=== PATIENT | female | born 2000 | race Caucasian/White ===

== ENCOUNTER 2022-12-29 16:29 | Outpatient (CLI) | payer OTHER, SELFPAY | END 2022-12-29 16:30 | disposition home or self-care (01) | LOC: NFLDUCREF 16:29 | PROVIDERS: Visit Provider Physician Assistant | DX: L02.91 Cutaneous abscess, unspecified (principal) | CPT/HCPCS: 87070 ==

== ENCOUNTER 2023-04-20 10:20 | Emergency (ER) | payer OTHER, SELFPAY ==
[2023-04-20 10:30] VITALS: BP 141/82; PULSE 96; RESP 16; TEMP 36.8; O2SAT 100; BMI 23.5
--- NOTE | 2023-04-20 10:57 | ED.GENADULT ---
HPI - General Adult General Chief complaint: GI Bleed Stated complaint: blood in stool Time Seen by Provider: 04/20/23 10:22 History of Present Illness HPI narrative: This 23-year-old female comes in reporting bright red blood in her stool over the past 4 5 days. She states that she did have some constipation and then these symptoms followed. She does not report any abdominal pain or fever. She does not have a previous history of GI bleeding from the rectum. She states that she thinks that she does have some issue with her hemorrhoids. She does not have any immediate family history of colon problems but states that her grandmother in her 40s because of colon cancer. Related Data Home Medications Medication Instructions Recorded Confirmed dextroamphetamine-amphetamine 5 mg 1 tab PO DAILY 12/29/22 04/20/23 tablet hydroxyzine HCl 25 mg tablet 25 mg PO 3XD 12/29/22 04/20/23 lisdexamfetamine 40 mg capsule 40 mg PO DAILY 12/29/22 04/20/23 Allergies Allergy/AdvReac Type Severity Reaction Status Date / Time amoxicillin Allergy Verified 04/20/23 10:29 Review of Systems Status of ROS: Reports: 10 or more systems reviewed and unremarkable except as noted in History and below Narrative: Constitutional: No fevers, no weight gain or loss. Eyes: No discharge. No vision changes. HENT: No congestion, no sore throat, no ear pain. Cardiovascular: No chest pain, no palpitations. Respiratory: No shortness of breath, no wheezes, no cough. Gastrointestinal: No abdominal pain, no vomiting, no diarrhea. Red blood mixed in with the stool over the past 4 5 days. Genitourinary: No dysuria, no hematuria. Musculoskeletal: Normal range of motion. Skin: No rashes, no pruritis. Neurological: No dizziness, weakness, sensory change, speech change. Endo/Heme/Allergies: No bruising or bleeding. No polydipsia. Pysch: no suicidality, no anxiety, no insomnia. All other systems reviewed and are negative. PFSH PFSH Social History Smoking Status: Never smoker Do you use any of these nicotine containing products: Smokeless Tobacco Second hand tobacco smoke exposure: No How often do you have a drink containing alcohol: 2-4 times a month AUDIT-C Alcohol total score: 2 Non-prescribed substance use: denies use service: No Exam Narrative: Exam Narrative: Constitutional: Well-developed, well-nourished, no acute distress. HEENT: Normocephalic, atraumatic. Neck: Normal range of motion. Nontender. Supple. Heart: Regular. No murmurs. Normal rate. Intact distal pulses. Lungs: Clear to auscultation. No chest discomfort. No wheezes, rhonchi, or rales. Abdomen: Normal bowel sounds. Nontender. No rebound tenderness. Genitalia: Deferred. Back: No midline tenderness. Normal range of motion. Extremities: Normal range of motion. No injury. Skin: Intact. No rash. Warm. No erythema or pallor. Neurologic: No altered sensation. No weakness. Alert and oriented. Psychiatric: No suicidality. No anxiety or depression. No insomnia. Nursing notes and vitals signs are reviewed. Const: Vital Signs, click to edit/add: Vital Signs - 24 hr 04/20/23 10:30 04/20/23 11:30 Temperature 98.3 F Pulse Rate [Pulse Oximeter] 96 95 Respiratory Rate 16 16 Blood Pressure [[facility]] 141/82 H 130/79 Pulse Oximetry 100 100 Oxygen Delivery Me thod Room Air Room Air Course Vital Signs Vital signs: Initial Vital Signs Temperature 98.3 F 04/20/23 10:30 Temperature Source Temporal Artery Scan 04/20/23 10:30 Pulse Rate 96 04/20/23 10:30 Pulse Rhythm Regular 04/20/23 10:30 Pulse Strength 3+ Normal 04/20/23 10:30 Respiratory Rate 16 04/20/23 10:30 Blood Pressure 141/82 H 04/20/23 10:30 Blood Pressure Mean 101 04/20/23 10:30 Blood Pressure Position Sitting 04/20/23 10:30 Pulse Oximetry 100 04/20/23 10:30 Oxygen Delivery Method Room Air 04/20/23 10:30 Vital Signs Temperature 98.3 F 04/20/23 10:30 Pulse Rate 96 04/20/23 10:30 Respiratory Rate 16 04/20/23 10:30 Blood Pressure 141/82 H 04/20/23 10:30 Pulse Oximetry 100 04/20/23 10:30 Oxygen Delivery Method Room Air 04/20/23 10:30 Temperature 98.3 F 04/20/23 10:30 Pulse Rate 95 04/20/23 11:30 Respiratory Rate 16 04/20/23 11:30 Blood Pressure 130/79 04/20/23 11:30 Pulse Oximetry 100 04/20/23 11:30 Oxygen Delivery Method Room Air 04/20/23 11:30 Medical Decision Making MDM Narrative Medical decision making narrative: This patient comes in with report of some bright red blood with her stools over the past 3 or 4 days. This occurred after some episodes of constipation. It seems most likely that this is a hemorrhoid or anal fissure related blood from the rectum. I did check labs today and these returned with normal findings. The patient is okay to return home. I advised her to follow-up for a flexible sigmoidoscopy or colonoscopy to further evaluate this. Lab Data Labs: Lab Results 04/20/23 Range/Units 11:05 WBC 6.24 (4.50-11.00) K/uL RBC 4.88 (4.00-5.20) m/uL Hgb 14.0 (12.0-16.0) gm/dL Hct 41.2 (33.0-51.0) % MCV 84 (80-100) fL MCH 29 (26-34) pg MCHC 34 (32-36) gm/dL RDW Coeff of [place] 12.6 (11.5-15.5) % Plt Count 235 (140-440) K/uL Neut % (Auto) 62.6 (42.0-72.0) % Lymph % (Auto) 26.8 (20-44) % [place] % (Auto) 5.9 (0.0-11.0) % Eos % (Auto) 4.2 (0.0-7.0) % Baso % (Auto) 0.5 (0.0-3.0) % Neut # (Auto) 3.91 (1.7-7.0) K/uL Lymph # (Auto) 1.67 (0.90-2.90) K/uL [place] # (Auto) 0.40 (0.00-0.90) K/UL Eos # (Auto) 0.26 (0.00-0.50) K/uL Baso # (Auto) 0.03 (0.00-0.30) K/uL Abs Immat Gran (auto) 0.00 (0.00-0.30) K/uL Imm/Tot Granulo (auto) 0.0 % ESR 2 (2-20) mm/hr Sodium 139 (135-149) mmol/L Potassium 3.7 (3.6-5.1) mmol/L Chloride 104 (96-114) mmol/L Carbon Dioxide 23 (20-32) mmol/L Anion Gap 12 (7-15) mEq/L BUN 11 (5-24) mg/dL Creatinine 0.7 (0.5-1.5) mg/dL Estimated Creat Clear 130.63 Estimated GFR 125 ml/min Glucose 94 (60-115) mg/dL Calcium 9.8 (8.4-10.6) mg/dL C-Reactive Protein < 0.5 L (0.5-1.0) mg/dL Discharge Plan Discharge Clinical Impression: Bright red rectal bleeding Patient Disposition: Home, Self-Care Condition: Stable Additional Instructions: Follow-up with clinic for recommended flexible sigmoidoscopy or colonoscopy. Return if worsening. Prescriptions: No Action hydroxyzine HCl 25 mg tablet 25 mg PO 3XD lisdexamfetamine 40 mg capsule 40 mg PO DAILY dextroamphetamine-amphetamine 5 mg tablet 1 tab PO DAILY Follow Up/Referrals: Provider,Not a Local [Primary Care Provider] - Stand Alone Forms: [facility] Info Instructions
[2023-04-20 11:16] LABS: Basophils Absolute Auto 0.03 K/uL (0.00-0.30); Basophils Percent Auto 0.5 % (0.0-3.0); Eosinophils Absolute Auto 0.26 K/uL (0.00-0.50); Eosinophils Percent Auto 4.2 % (0.0-7.0); Hematocrit 41.2 % (33.0-51.0); Lymphocytes Absolute Auto 1.67 K/uL (0.90-2.90); Lymphocytes Percent Auto 26.8 % (20-44); Mean Corpuscular HGB Conc 34 gm/dL (32-36); Mean Corpuscular Hemoglobin 29 pg (26-34); Mean Corpuscular Volume 84 fL (80-100); Monocytes Percent Auto 5.9 % (0.0-11.0); Neutrophils Absolute Auto 3.91 K/uL (1.7-7.0); Neutrophils Percent Auto 62.6 % (42.0-72.0); Platelet Count* 235 K/uL (140-440); RDW Coefficient of Variation % 12.6 % (11.5-15.5); Red Blood Count 4.88 m/uL (4.00-5.20); White Blood Count* 6.24 K/uL (4.50-11.00)
[2023-04-20 11:28] LABS: Slide Review Reflex No
[2023-04-20 11:30] VITALS: BP 130/79; PULSE 95; RESP 16; O2SAT 100
[2023-04-20 11:44] LABS: Chloride* 104 mmol/L (96-114); Potassium* 3.7 mmol/L (3.6-5.1); Sodium* 139 mmol/L (135-149)
[2023-04-20 11:47] LABS: Anion Gap 12 mEq/L (7-15); Blood Urea Nitrogen* 11 mg/dL (5-24); Calcium* 9.8 mg/dL (8.4-10.6); Carbon Dioxide* 23 mmol/L (20-32); Creatinine* 0.7 mg/dL (0.5-1.5); Est. Creatinine Clearance* 130.63; Estimated Glomerular Filt Rate 125 ml/min; Glucose* 94 mg/dL (60-115)
[2023-04-20 11:55] LABS: Erythrocyte SedimentationRate* 2 mm/hr (2-20)
[2023-04-20 12:01] LABS: C Reactive Protein* < 0.5 mg/dL (0.5-1.0)
== END 2023-04-20 12:23 | disposition home or self-care (01) ==
PROVIDERS: Emergency Provider Emergency Medicine Emergency Medical Services
DX: K62.5 Hemorrhage of anus and rectum (principal)
CPT/HCPCS: 36415; 80048; 85025; 85651; 86140; 99283; 99284